=== PATIENT | female | born 1965 | race Caucasian/White ===

== ENCOUNTER 2021-12-11 11:00 | Emergency (ER) | payer OTHER ==
[2021-12-11 11:21] VITALS: BP 144/86; PULSE 90; TEMP 99; BMI 26.9
[2021-12-11] MEDS ORDERED: DIPHTH,PERTUSS(ACELL),TET 0.5 ML DISP.SYRIN IM ONE ×2 (11:22→11:37)
[2021-12-11] MEDS ORDERED: AMOX TR/POT CLAV 875MG/125MG TABLETS (FP) PO ONE (11:22)
[2021-12-11] MEDS ORDERED: AMOX TR/POT CLAV 875MG/125MG TABLETS (FP) ONE (11:37)
== END 2021-12-11 11:46 | disposition home or self-care (01) ==
LOC: FER 11:00
PROC: 3E0234Z Introduction of Serum, Toxoid and Vaccine into Muscle, Percutaneous Approach (ICD-10-PCS; principal; 2021-12-11)
DX: S61.451A Open bite of right hand, initial encounter (principal); S61.452A Open bite of left hand, initial encounter; W55.01XA Bitten by cat, initial encounter
CPT/HCPCS: 90715; 99283-25

== ENCOUNTER 2022-01-02 14:14 | Emergency (ER) | payer OTHER ==
[2022-01-02 14:38] VITALS: BP 141/85; PULSE 83; TEMP 97.9; BMI 26.6
[2022-01-02] MEDS ORDERED: ACETAMINOPHEN 325 MG TABLET (FP) PO ONE (15:08)
[2022-01-02] MEDS ORDERED: ACETAMINOPHEN 325 MG TABLET (FP) ONE (15:11)
== END 2022-01-02 15:35 | disposition home or self-care (01) ==
LOC: FER 14:14
DX: S69.91XA Unspecified injury of right wrist, hand and finger(s), initial encounter (principal); W01.0XXA Fall on same level from slipping, tripping and stumbling without subsequent striking against object, initial encounter
CPT/HCPCS: 73110-TC-RT-FY; 99283-25

== ENCOUNTER 2024-04-10 12:26 | Emergency (ER) | payer OTHER ==
[2024-04-10 12:40] VITALS: BP 121/85; PULSE 80; RESP 20; TEMP 97.7; BMI 25.8
== END 2024-04-10 14:46 | disposition home or self-care (01) ==
LOC: FER 12:26
DX: S92.352A Displaced fracture of fifth metatarsal bone, left foot, initial encounter for closed fracture (principal); X50.1XXA Overexertion from prolonged static or awkward postures, initial encounter
CPT/HCPCS: 73610-TC-LT-FY; 73630-TC-LT; 99283-25